=== PATIENT | male | born 1945 | race Hispanic/Latino ===

== ENCOUNTER 2023-08-04 10:39 | Emergency (ER) | payer MEDICARE, OTHER ==
[~2023-08-04] VITALS: Ht 180.3 cm; Wt 103.0 kg
[2023-08-04 12:02] LABS: HEMATOCRIT 38.2 % (42-54); MEAN CORPUSCULAR HEMOGLOBIN 29.3 pg (27.0-33.0); MEAN CORPUSCULAR HGB CONC 33.2 g/dL (32.0-36.0); MEAN CORPUSCULAR VOLUME 88.2 fL (79-99); PLATELET COUNT (AUTO) 188 K/uL (130-400); RED BLOOD CELL COUNT(AUTO) 4.33 MIL/uL (4.50-6.20); RED CELL DISTRIBUTION WIDTH 14.7 % (11.0-15.5); WHITE BLOOD COUNT (AUTO) 5.9 K/uL (4.8-10.8)
[2023-08-04 12:25] LABS: POTASSIUM 3.9 mmol/L (3.5-5.1)
[2023-08-04 12:34] LABS: ALBUMIN 3.5 g/dL (3.5-5.0); BILIRUBIN,TOTAL 0.5 mg/dL (0.2-1.0); TOTAL PROTEIN, SERUM 7.2 g/dL (6.0-8.3)
[2023-08-04 12:36] LABS: B-TYPE NATRIURETIC PEPTIDE 65 pg/mL (0-100)
[2023-08-04 14:06] LABS: LYMPHOCYTES % (MANUAL) 22 % (22-44); SEGMENTED NEUTROPHILS % 66 % (40-70)
[2023-08-04 14:07] LABS: BASOPHILS % (MANUAL) 1 % (0-2); EOSINOPHILS % (MANUAL) 5 % (1-6); MAN.DIFF COMMENT-IMPRESSION MANUAL DIFFERENTIAL; MONOCYTES % (MANUAL) 6 % (2-9)
[2023-08-04 14:08] LABS: PLATELET MORPHOLOGY COMMENT ADEQUATE; TOTAL CELLS COUNTED 100; WBC MORPHOLOGY SLIDE REVIEWED
[2023-08-04 14:17] VITALS: BP 108/59; PULSE 91; RESP 18; O2SAT 98
== END 2023-08-04 14:48 | disposition home or self-care (01) ==
LOC: EDH 10:39
DX: I87.2 Venous insufficiency (chronic) (peripheral) (principal); I10 Essential (primary) hypertension; E11.9 Type 2 diabetes mellitus without complications; Z90.49 Acquired absence of other specified parts of digestive tract; Z79.899 Other long term (current) drug therapy; Z98.890 Other specified postprocedural states; Z88.5 Allergy status to narcotic agent; Z88.8 Allergy status to other drugs, medicaments and biological substances
CPT/HCPCS: 36415; 71045; 80053; 83880; 85025; 93970